=== PATIENT | male | born 1990 | race Caucasian/White ===

== ENCOUNTER 2018-08-02 19:40 | Emergency (ER) | payer OTHER ==
[~2018-08-02] VITALS: Ht 170.2 cm; Wt 73.0 kg
[2018-08-02 19:52] VITALS: BP 128/93
--- NOTE | 2018-08-02 19:58 | NUR ---
PT SENT TO LOBBY TO WAIT FOR A BED.
--- NOTE | 2018-08-02 20:26 | NUR ---
PT TAKEN TO BED 6
--- NOTE | 2018-08-02 20:30 | NUR ---
PT RESENTED ER WITH C/O RIGHT EAR PAIN X 10 DAYS. PT IS A/O X 4. PT PAIN LEVEL IS 7/10 AT THIS TIME. KNA AND NO PREVIOUS MEDICAL HX. DENIES N/V/D; SKIN IS PINK/WARM/DRY; EVEN AND STEADY GAIT; VSS; PATIENT POSITIONED FOR COMFORT; HOB ELEVATED; BEDRAILS UP X2; BED DOWN. ER MD MADE AWARE OF PT STATUS.
[2018-08-02 20:55] VITALS: BP 128/93
--- NOTE | 2018-08-02 20:55 | NUR ---
Patient discharged with v/s stable. Written and verbal after care instructions given and explained. Patient alert, oriented and verbalized understanding of instructions. Ambulatory with steady gait. All questions addressed prior to discharge. ID band removed. Patient advised to follow up with PMD. Rx of OFLOXACIN WAS given. Patient educated on indication of medication including possible reaction and side effects. Opportunity to ask questions provided and answered.
== END 2018-08-02 20:55 | disposition home or self-care (01) ==
LOC: MED 19:40
DX: H60.91 Unspecified otitis externa, right ear (principal)
CPT/HCPCS: 99283

== ENCOUNTER 2018-10-13 19:59 | Emergency (ER) | payer OTHER ==
[~2018-10-13] VITALS: Ht 170.2 cm; Wt 95.3 kg
[2018-10-13 20:16] VITALS: BP 120/81
--- NOTE | 2018-10-13 20:19 | NUR ---
TO LOBBY A/W BED, OSMAN COLIN NOTED
--- NOTE | 2018-10-13 21:07 | NUR ---
PT TAKEN TO BED 1
--- NOTE | 2018-10-13 21:15 | NUR ---
PATIENT PRESENTS TO ED WITH ANXIETY . PT STATES HE WAS DRIVING HOME AND STARTED FILLING LIKE HIS HEART RATE AND BLOOD PRESSURE WERE RISING. TOOK HIS FATHERS HYDROCHLORITHIAZIDE 25MG BECAUSE HE THOUGHT HIS BLOOD PRESSURE WAS HIGH. -DENIES N/V/D; SKIN IS PINK/WARM/DRY; AAOX4 WITH EVEN AND STEADY GAIT -LUNGS CLEAR BL; HR EVEN AND REGULAR; PT DENIES ANY FEVER, CP, SOB, OR COUGH AT THIS TIME -PATIENT STATES PAIN OF 0/10 AT THIS TIME; VSS -PATIENT POSITIONED FOR COMFORT; HOB ELEVATED; BEDRAILS UP X1; BED DOWN. ER MD MADE AWARE OF PT STATUS.
--- NOTE | 2018-10-13 21:24 | NUR ---
PT AMBUALTED TO BATHROOM.
[2018-10-13] MEDS ORDERED: LORazepam 1 MG TAB PO ONE (21:40)
[2018-10-13] MEDS ORDERED: ONDANSETRON 4 MG ODT PO ONE (21:45)
[2018-10-13 22:10] VITALS: BP 124/64
== END 2018-10-13 22:10 | disposition home or self-care (01) ==
LOC: MED 19:59
DX: F41.9 Anxiety disorder, unspecified (principal); R20.2 Paresthesia of skin
CPT/HCPCS: 93005; 99284; Q0162; 99283

== ENCOUNTER 2018-11-05 02:50 | Emergency (ER) | payer OTHER ==
[~2018-11-05] VITALS: Ht 172.7 cm; Wt 95.3 kg
[2018-11-05 02:55] VITALS: BP 136/80
--- NOTE | 2018-11-05 02:55 | NUR ---
TO BED # 3 AMBULATORY, REPORT GIVEN TO TANYA RUELAS
--- NOTE | 2018-11-05 03:00 | NUR ---
AMBULATED TO ER BED 3
--- NOTE | 2018-11-05 03:07 | NUR ---
PT BIB SELF FOR HAND PAIN AND SWELLING X1 DAY. PT STATES HE FIRST NOTICED SWELLING THIS MONRING IN HIS R HAND ALONG WITH ITCHY PAIN AT 5/10. PT STATES THT WITHIN THE LAST 2 HOURS FINGERS ON HIS L HAND HAVE STARTED TO SWELL WELL TOES ON BOTH FEET. NOTICEABLE EDMEA AND EYTHEMA ON PT R HAND, AND 3RD FINGER ON L HAND. CMS+. PT DENIES SOB, NO WHEEZES AUDIBLE. VSS. PT DENIES FEVER OR N/V. PT DENIES ALLERGIES AND MEDICAL HISTORY. ER MD TO SEE PT. HOB ELEVATED, SIDE RAIL UP X1, AND BED IN LOWEST POSITION. WILL CONTINUE TO MONITOR.
[2018-11-05] MEDS ORDERED: KETOROLAC 60 MG/2 ML VIAL IM ONE (03:25)
[2018-11-05 04:05] VITALS: BP 132/82
--- NOTE | 2018-11-05 04:05 | NUR ---
Patient discharged with v/s stable. Written and verbal after care instructions given and explained. Patient alert, oriented and verbalized understanding of instructions. Wheel Chair Assisted with to car. All questions addressed prior to discharge. ID band removed. Patient advised to follow up with PMD. Rx of BENADRYL, MOTRIN, AND PREDNISONE given. Patient educated on indication of medication including possible reaction and side effects. Opportunity to ask questions provided and answered.
== END 2018-11-05 04:05 | disposition home or self-care (01) ==
LOC: MED 02:50
DX: T78.40XA Allergy, unspecified, initial encounter (principal); X58.XXXA Exposure to other specified factors, initial encounter
CPT/HCPCS: 96372; 99283; J1885

== ENCOUNTER 2018-11-05 21:12 | Emergency (ER) | payer OTHER ==
[~2018-11-05] VITALS: Ht 172.7 cm; Wt 90.7 kg
[2018-11-05 21:16] VITALS: BP 122/77
--- NOTE | 2018-11-05 21:16 | NUR ---
TO BED # 2 AMBULATORY, REPORT GIVEN TO CELSO RUELAS
--- NOTE | 2018-11-05 21:20 | NUR ---
PT BIB FATHER C/O BILATERAL HAND AND FEET SWELLING/RASH. PT STATES HE WAS SEEN IN THE [facility] ED LAST NIGHT FOR THE SAME THING BUT SYMPTOMS HAVE GOT WORSE. PT STATES THE RASH STARTED YEST WHILE HE WAS AT WORK, IT STARTED ON HIS RIGHT PALM AND PROGRESSED IS NOW ON BILATERAL ARMS, FOREHEAD AND BILATERAL FEET. MODERATE REDNESS, NO DISCHARGE NOTED. DENIES N/V/D, SOB, CP. AAOX4. CLEAR SPEACH, NO SIGNS OF RD. PATENT AIRWAY. PT IN BED; BED IN LOWER LOCKED POSITION, BEDRAILS UP X1. ER MD MADE AWARE OF PT STATUS. PMH: DENIES
[2018-11-05] MEDS ORDERED: methylPREDNISolone SS 125 MG/2 ML VIAL IVP ONE (21:35)
[2018-11-05] MEDS ORDERED: EPINEPHrine 1:1000 - 1 MG/ML AMP IM ONE (21:35)
--- NOTE | 2018-11-05 21:59 | NUR ---
Dr. De Dios evaluating patient at bedside.
--- NOTE | 2018-11-05 22:40 | NUR ---
Patient discharged with v/s stable. Written and verbal after care instructions given and explained. Patient alert, oriented and verbalized understanding of instructions. Ambulatory with steady gait. All questions addressed prior to discharge. ID band removed. Patient advised to follow up with PMD. Rx of Atarax, and Keflex given. Patient educated on indication of medication including possible reaction and side effects. Opportunity to ask questions provided and answered.
[2018-11-05 22:57] VITALS: BP 125/78
== END 2018-11-05 22:40 | disposition home or self-care (01) ==
LOC: MED 21:12
DX: L51.9 Erythema multiforme, unspecified (principal)
CPT/HCPCS: 96372; 96374; 99283; J0171; J2930